=== PATIENT | female | born 1960 | race Caucasian/White ===

== ENCOUNTER → 2017-05-23 | Outpatient (CLI) | payer OTHER | LOC: CIMAGING 14:03 | PROVIDERS: ATTEND Family Medicine | DX: M17.11 Unilateral primary osteoarthritis, right knee (principal); M17.12 Unilateral primary osteoarthritis, left knee | CPT/HCPCS: 73560-PO ==

== ENCOUNTER → 2017-11-11 | Outpatient (CLI) | payer BC | LOC: FIMAGING 09:03 | PROVIDERS: ATTEND Family Medicine | DX: Z12.31 Encounter for screening mammogram for malignant neoplasm of breast (principal); Z80.3 Family history of malignant neoplasm of breast ==

== ENCOUNTER → 2018-02-08 | Outpatient (CLI) | payer BC ==
--- NOTE | 2018-02-08 21:13 | CPEKG ---
Test Reason : PREOP Blood Pressure : / mmHG Vent. Rate : 058 BPM Atrial Rate : 059 BPM P-R Int : 140 ms QRS Dur : 082 ms QT Int : 436 ms P-R-T Axes : -27 -24 -20 degrees QTc Int : 429 ms SINUS RHYTHM Confirmed by Shoaib Heard ([id number]) on 02/08/2018 9:13:10 PM Referred By: Confirmed By:Shoaib Heard
--- NOTE | 2018-02-13 15:36 | GHP ---
[f rep st] HISTORY AND PHYSICAL CURRENT COMPLAINT: Left knee pain. HISTORY OF PRESENT ILLNESS: The patient is a 57-year-old female with a several year history of left knee pain worsening with use despite multiple conservative management. Radiographic studi es reveal [id number] osteoarthritic changes. She wishes to have surgery in order to resolve the pr oblem. ALLERGIES: Include penicillins. CURRENT MEDICATIONS: Include fluoxetine and sumatriptan. PAST MEDICAL HISTORY: Prior medical problems include migraines, hepatitis, and anemia. PRIOR SURGERIES: Includes eye surgery, gallbladder. SOCIAL HISTORY: She lists no smoking nor any lists any drinking. PHYSICAL EXAMINATION: HEENT: The patient's pupils are equal, round, and reactive to light. CHEST: Clear to auscultation. HEART: Regular rate and rhythm. ABDOMEN: Soft and nontender. EXTREMITIES : Patient has a varus angle to bilateral knees. Significant gapping to valgus stress suggesting goo d end point. IMAGING: X-ray exam reveals medial osteoarthritic changes medial compartment on the left knee and to the patellofemoral compartment. ASSESSMENT: Patient is status post left knee osteoarthritis. PLAN: To take her to the operating room to undergo a left total knee replacement. /[id number]/MODL
== END ==
LOC: FPAT 09:46
PROVIDERS: ATTEND Orthopaedic Surgery
DX: Z01.810 Encounter for preprocedural cardiovascular examination (principal); Z01.812 Encounter for preprocedural laboratory examination

== ENCOUNTER 2018-02-14 08:21 | Observation (INO) | payer BC ==
[2018-02-08 10:31] LABS: PLATELET COUNT 277 10^3/uL (150-400)
[~2018-02-14 08:21] MED LIST: ACETAMINOPHEN 500 MG TAB PO ONE; BACITRACIN 50,000 UNITS/10 ML SYR IRR ONE; BUPIVACAINE/EPI 0.5% 30 ML SDV ONE; CALCIUM CHLORIDE 1 GM/10 ML INJ ONE; CLINDAMYCIN 900 MG/DEXTROSE 50 ML IV ONE; LR 1,000 ML IV SCH; POLYMYXIN B SULFATE 500,000 UNIT/10 ML SYR IRR ONE; PREGABALIN 150 MG CAP PO ONE; ROPIVACAINE 0.2% 80 MG, EPINEPHrine 0.2 MG, KETOROLAC TROMETHAMINE 30 MG, morphINE 10 M... IU ONE; THROMBIN (BOVINE) 5,000 UNIT VIAL TP ONE; TRANEXAMIC ACID 3,000 MG in NS (SYRINGE) 50 ML IRR ONE; TRANEXAMIC ACID 3,000 MG/50 ML BAG IRR ONE
[2018-02-14] MEDS ORDERED: LR 1,000 ML IV ONE (08:30)
[2018-02-14] MEDS ORDERED: LIDOCAINE 1% 2 ML INJ ID PRN (08:30)
[2018-02-14] MEDS ORDERED: CLINDAMYCIN 900 MG/DEXTROSE/50 ML BAG IV ONE (09:04)
[2018-02-14] MEDS ORDERED: PREGABALIN 150 MG CAP ONE (09:05)
[2018-02-14] MEDS ORDERED: ACETAMINOPHEN 500 MG TAB ONE (09:05)
--- NOTE | 2018-02-14 09:34 | PDHPUP ---
History & Physical Update H&P update statement: This history and physical update is based on an assessment of the patient which was completed after admission or registration (within 24 hours), but prior to the surgery/procedure. H&P update: H&P reviewed & patient examined, no change in patient's condition since H&P completed
[2018-02-14] MEDS ORDERED: MIDAZOLAM 2 MG/2 ML VIAL IVP ONE (09:52)
--- NOTE | 2018-02-14 09:54 | PDANEPAE ---
ANE Past Medical History - Cardiovascular History Hx Hypertension: No Hx Arrhythmias: No Hx Chest Pain: No Hx Coronary Artery / Peripheral Vascular Disease: No Hx CHF / Valvular Disease: No Hx Palpitations: No - Pulmonary History Hx COPD: No Hx Asthma/Reactive Airway Disease: No Hx Recent Upper Respiratory Infection: No Hx Oxygen in Use at Home: No Hx Sleep Apnea: No Sleep Apnea Screening Result - Last Documented: Negative Pulmonary History Comment: PNEUMONIA 2007 - Neurologic History Hx Cerebrovascular Accident: No Hx Seizures: No Hx Dementia: No - Endocrine History Hx Diabetes: No - Renal History Hx Renal Disorders: No - Liver History Hx Hepatic Disorders: No - Neurological & Psychiatric Hx Hx Neurological and Psychiatric Disorders: Yes Neurological / Psychiatric History Comment: DEPRESSION. TWICE A MONTH MIGRAINES - Cancer History Hx Cancer: No - Congenital Disorder History Hx Congenital Disorders: No - GI History Hx Gastrointestinal Disorders: Yes Gastrointestinal History Comment: GERD - Other Health History Other Health History: ANEMIA. MISSING UPPER BACK LT TOOTH. OSTEOARTHRITIS. EASY BRUISING - Chronic Pain History Chronic Pain: Yes (LT KNEE) - Surgical History Prior Surgeries: LAP PADMAJA. LT STRABISMUS ANE Review of Systems Review of Systems: - Exercise capacity METS (RN): 3 METS ANE Patient History - Allergies Allergies/Adverse Reactions: Penicillins Allergy (Intermediate, Verified 02/07/18 19:00) Hives - Home Medications Home medications: home medication list seen and reviewed Home Medications: FLUoxetine HS 02/07/18 [Last Taken 02/13/18] Herbals/Supplements -Info Only DAILY 02/07/18 [Last Taken 02/13/18] Iron DAILY 02/07/18 [Last Taken 02/13/18] Ranitidine HCl HS 02/07/18 [Last Taken 02/13/18] SUMAtriptan PRN 02/07/18 [Last Taken 2 Weeks Ago ~01/31/18] - NPO status NPO Since - Liquids (Date): 02/14/18 NPO Since - Liquids (Time): 06:00 NPO Since - Solids (Date): 02/13/18 NPO Since - Solids (Time): 22:00 - Anes Hx Anes Hx: no prior problems - Smoking Hx Smoking Status: Current some day smoker - Alcohol Use Alcohol Use: Rarely - Family Anes Hx Family Anes Hx: none ANE Labs/Vital Signs - Labs Result Diagrams: 02/08/18 10:18 - Vital Signs Blood Pressure: 148/97 Heart Rate: 69 Respiratory Rate: 16 O2 Sat (%): 97 Height: 157.48 cm Weight: 81.647 kg ANE Physical Exam - Airway Neck exam: FROM Mallampati Score: Class 2 - Pulmonary Pulmonary: no respiratory distress, no rales or rhonchi, clear to auscultation - Cardiovascular Cardiovascular: regular rate and rhythym, no murmur, rub, or gallop - ASA Status ASA Status: II ANE Anesthesia Plan Anesthesia Plan: spinal Regional Anesthesia: adductor canal FNB
[2018-02-14] MEDS ORDERED: MIDAZOLAM 2 MG/2 ML VIAL ONE (09:56)
[2018-02-14] MEDS ORDERED: PROPOFOL/EMULSION 500 MG/50 ML BOTTLE IV ONE ×2 (10:00→11:17)
[2018-02-14] MEDS ORDERED: BUPIVACAINE 0.75% 10 ML SDV ONE (10:06)
[2018-02-14] MEDS ORDERED: fentaNYL 100 MCG/2 ML INJ ONE (10:08)
[2018-02-14] MEDS ORDERED: BUPIVACAINE 0.25% 30 ML SDV ONE (10:36)
[2018-02-14] MEDS ORDERED: ONDANSETRON 4 MG/2 ML VIAL ONE (10:54)
[2018-02-14] MEDS ORDERED: DEXAMETHASONE 4 MG/ML VIAL ONE ×2 (10:54)
[2018-02-14] MEDS ORDERED: NALOXONE HCL 0.4 MG/ML INJ IVP PRN (11:10)
[2018-02-14] MEDS ORDERED: THROMBIN (BOVINE) 5,000 UNIT VIAL TP ONE (11:17)
[2018-02-14] MEDS ORDERED: EPINEPHrine 1 MG/ML INJ ONE (11:17)
[2018-02-14] MEDS ORDERED: oxyCODONE IR 5 MG TAB PO PRN (11:52)
[2018-02-14] MEDS ORDERED: ACETAMINOPHEN 500 MG TAB PO PRN (11:52)
[2018-02-14] MEDS ORDERED: ONDANSETRON 4 MG/2 ML VIAL IVP PRN ×2 (11:52→12:10)
[2018-02-14] MEDS ORDERED: PROMETHAZINE HCL 25 MG/ML INJ IVP PRN ×2 (11:52→12:10)
[2018-02-14] MEDS ORDERED: LR 500 ML IV PRN (11:52)
[2018-02-14] MEDS ORDERED: fentaNYL 100 MCG/2 ML INJ IVP PRN (11:52)
[2018-02-14] MEDS ORDERED: PROMETHAZINE HCL 25 MG SUPPR PR PRN (12:10)
[2018-02-14] MEDS ORDERED: LACTULOSE 20 GM/30 ML UDCUP PO PRN (12:10)
[2018-02-14] MEDS ORDERED: DIPHENOXYLATE/ATROPINE LOMOTIL 1 TAB PO PRN (12:10)
[2018-02-14] MEDS ORDERED: diphenhydrAMINE 25 MG CAP PO PRN (12:10)
[2018-02-14] MEDS ORDERED: MAGNESIUM HYDROXIDE 30 ML UDCUP PO PRN (12:10)
[2018-02-14] MEDS ORDERED: POLYETHYLENE GLYCOL 3350 17 GM PKT PO PRN (12:10)
[2018-02-14] MEDS ORDERED: TEMAZEPAM 15 MG CAP PO PRN (12:10)
[2018-02-14] MEDS ORDERED: TAPENTADOL HCL 50 MG TAB PO PRN (12:10)
[2018-02-14] MEDS ORDERED: BISACODYL 10 MG SUPP PR PRN (12:10)
[2018-02-14] MEDS ORDERED: METOCLOPRAMIDE 10 MG/2 ML VIAL IVP PRN (12:10)
[2018-02-14] MEDS ORDERED: ONDANSETRON DISINTEGRATING 4 MG TAB PO PRN (12:10)
--- NOTE | 2018-02-14 12:10 | POSTOPPROG ---
Post Op Note Date of Operation: 02/14/18 Surgeon: Tejal Ibrahim Record Keeper: coltrain Anesthesia: Epidural, IV Sedation Pre-op Diagnosis: l knee oa Procedure: l tkr Inf/Abcess present in the surg proc area at time of surgery?: No Depth: Deep Incisional (Fascial) EBL: 100-500
[2018-02-14] MEDS ORDERED: LR 1,000 ML IV SCH (12:30)
--- NOTE | 2018-02-14 12:42 | POSTANESTH ---
Post Anesthetic Evaluation Cardiovascular Status: Normal, Stable, Similar to Pre-Op Cond Respiratory Status: Normal, Stable, Similar to Pre-op Cond. Level of Consciousness/Mental Status: Can Participate in Eval, Mildly Sleepy, Arousable Pain Control: Adequate, Prn Tx Ordered Nausea/Vomiting Control: Adequate, Prn Tx Ordered Complications Possibly Related to Anesthesia: None Noted (L Adductor Canal nerve block performed in PACU.)
--- NOTE | 2018-02-14 13:01 | GOP ---
[f rep st] OPERATIVE REPORT DATE OF OPERATION: 02/14/2018 SURGEON: Tejal Ibrahim MD ANESTHESIA: By epidural plus IV sedation. PREOPERATIVE DIAGNOSIS: Left knee osteoarthritis. POSTOPERATIVE DIAGNOSIS: Left knee osteoarthritis. PROCEDURE PERFORMED: FINDINGS: DESCRIPTION OF PROCEDURE: Patient brought to the operating room after the left side had been identif ied as correct side by the patient, nurse and physician. Once in the operating room, she was given t he epidural nerve block and was placed under IV sedation. She was placed supine on the operating tab le. The left lower extremity had a tourniquet placed around the upper portion of left thigh, and the left lower extremity then sterilely prepped and draped in usual fashion using GSI solution. Once pr epped and draped, the limb was exsanguinated, tourniquet inflated to 250 mmHg. A linear incision was made on the anterior portion of the knee 1 handbreadth above and below the patella, with sharp disse ction carried down through the skin and subcutaneous layers, with bleeding controlled using electroca utery. A medial parapatellar incision was made through the extensor mechanism, with the patella brou ght to the side but not everted. Inspection of the joint revealed grade 4 chondral changes of the me dial compartment, grade 3 chondral changes at the patellofemoral compartment and grade 2 to the later al. Therefore, the ACL, as well as the medial and lateral meniscus were removed. Drill hole was mad e 1 cm anterior to the intercondylar notch with an intramedullary guide introduced into the femur and the end-cutting guide set at 5 degrees of valgus and set to remove 10 mm of bone. Once pinned into place, the intramedullary guide was removed. Oscillating saw was used to remove the distal end of th e femur. Once it was removed, osteotome was used to remove the cartilage off the posterior condyles of the femur. A sizing guide was placed on the cut surface of the femur noted a size 5 seemed to fit best. Therefore, drill holes were made and a size five 4 in 1 cutting block was put into place. On ce pinned into place, position was checked with an Som wing and then an oscillating saw was used to cut the anterior and posterior cuts as well as the anterior posterior chamfer cuts. Once all the [place] fragments had been removed, a size 5 trial was put into place and noted to fit securely. The [facility] hlear cuts were then made and lug holes were drilled for the femoral component. The leg was extended all the way and noted to achieve full extension, suggesting an adequate amount of bone had been odell edy. The femoral trial was removed. The knee was brought to maximal flexion, tibia subluxed anterio rly. An external tibial guide was put into place, set in neutral varus valgus and slight posterior s luisana. Once pinned into place, position was checked using a drop gavin, as well as an Som wing. Osci llating saw was then used to remove the proximal portion of the tibia until achieving flat cut. Tria l femur, tibia, and liner was put in place. The knee was stable to achieve full extension, suggestin g an adequate amount had been removed. Therefore, pins removed from the tibia. The knee was brought back to full flexion with the tibia subluxed anteriorly. Sizing guides were placed on the cut surfa ce of the tibia and noted a size 4 seemed to fit best. Therefore, a size 4 trial was put into place, pinned in slight external rotation. Drill holes made through the tibial guide to accommodate the ke el and then a keel punch passed through the tibia. All trials were then removed from the tibia inclu ding the pins. The leg was brought to full extension. Patella was then everted, held in place with towel clamps. The tibia was measured to be 21 mm in size. Oscillating saw was used to remove the po sterior portion of the patella, leaving 14 mm of bone. Multiple sizes were trialed on the cut surfac e. Noted that a 29 mm patella button seemed to fit best and lug holes were drilled for a 29 mm crawford lar button. All cut surfaces of the bone were then thoroughly irrigated with antibiotic solution usi ng pulsatile lavage while cement was being mixed. Once cement was doughy, it was placed on the cut s urface of the tibia with a size 4 right medical tibial component put into place with excess cement re moved using [place] elevators. Cement was then placed on the posterior skids of the femoral component. A size 5 cruciate retaining right medical femoral component was put into place with excess cement r emoved using [place] elevator. A trial liner was placed in the tibial tray. The knee was brought to f ull extension in order to pressurize cement. Cement was then placed on the cut surface of the patell a and a 29 mm patellar button was clamped into place with excess cement removed using [place] elevator. Once cement had hardened, any excess cement that was found was removed using combination of rongeur and osteotome. Multiple trials were placed in the tibial tray and noted that a 12 mm polyethylene l iner seemed to fit best. Therefore, a size 4 x 12 mm polyethylene liner was put into place and noted to fit securely. Tourniquet was deflated at 60 minutes. Bleeding was controlled using electrocaute ry. The joint cocktail was injected in the posterior capsule and periosteum of the femur, the tibia and extensor mechanism. Tranexamic acid was irrigated through the wound. The wound was then closed in layers to include 0 Vicryl suture in a [id number] type stitch for the extensor mechanism, wit h plasma gel placed intra-articularly. 0 Vicryl and 2-0 Vicryl suture used for the subcutaneous laye rs and a 3-0 V-Loc suture in a running subcuticular stitch for the skin. The wound was then dressed with Steri-Strips, Xeroform, 4 x 4, and Kerlix. Leg was completely undraped in the operating room, t ourniquet removed from the thigh and an Chris wrap placed around the knee. The patient was then comple tely undraped in the operating room. She was transferred onto a stretcher and sent to recovery room in good condition. PROCEDURE PERFORMED: Left total knee arthroplasty. ASSITANT: Pablito Lopez, ROMINA, LSA, whose presence was medically necessary. TOURNIQUET TIME: 60 minutes. INDICATION FOR SURGERY: This is a 57-year-old female with a several year history of left knee pain w orsening with use and with time. X-ray exam reveals [id number] osteoarthritic changes. She wishes to have surgery in order to resolve the problem. /[id number]/MODL
[2018-02-14] MEDS: KETOROLAC 15 MG/1 ML SDV IVP SCH (17:49)
[2018-02-14] MEDS: traMADol 50 MG TAB PO SCH (17:52)
[2018-02-14] MEDS ORDERED: VANCOMYCIN 1.25 GM in D5W 250 ML IV ONE (18:00)
[2018-02-14] MEDS: FAMOTIDINE 20 MG TAB PO SCH (20:14)
[2018-02-14] MEDS: CYCLOBENZAPRINE 10 MG TAB PO PRN (20:14)
[2018-02-14] MEDS: SENNOSIDES/DOCUSATE SODIUM TAB PO SCH (20:14)
[2018-02-15] MEDS: traMADol 50 MG TAB PO SCH ×3 (00:08→13:03)
[2018-02-15] MEDS: KETOROLAC 15 MG/1 ML SDV IVP SCH ×4 (00:08→13:03)
[2018-02-15] MEDS ORDERED: PNEUMOCOCCAL 0.5ML VACCINE VIAL IM ONE (05:29)
[2018-02-15] MEDS ORDERED: RIVAROXABAN 10 MG TAB PO SCH (09:00)
[2018-02-15] MEDS: CYCLOBENZAPRINE 10 MG TAB PO PRN (10:01)
[2018-02-15] MEDS: FAMOTIDINE 20 MG TAB PO SCH (10:02)
[2018-02-15] MEDS: SENNOSIDES/DOCUSATE SODIUM TAB PO SCH (10:02)
[2018-02-15 11:43] VITALS: BP 120/83
--- NOTE | 2018-02-15 14:05 | PDIAF ---
- Diagnosis Diagnosis: left knee osteoarthritis Code Status: Full Code - Medication Management Discharge Medications: Medications to Continue on Transfer Cholecalciferol Vit D3 [Vitamin D3 (*)] 1,000 units PO DAILY 02/14/18 [Last Taken Unknown] FLUoxetine HCL [Fluoxetine HCl] 40 mg PO HS 02/14/18 [Last Taken 02/13/18] Herbals/Supplements -Info Only 1 ea PO DAILY 02/14/18 [Last Taken Unknown] Ranitidine HCl [Zantac] 150 mg PO HS PRN 02/14/18 [Last Taken 02/13/18] Sumatriptan Succinate [Imitrex] 100 mg PO Q2H PRN 02/14/18 [Last Taken Unknown] Rivaroxaban [Xarelto 10mg (*)] 10 mg PO DAILY 10 Days tab 02/15/18 [Last Taken Unknown] Tapentadol HCl [Nucynta 50 MG (*)] 50 mg PO Q4HRS PRN #30 tab 02/15/18 [Last Taken Unknown] traMADol [Ultram 50 mg (*)] 50 mg PO Q6HRS #30 tab 02/15/18 [Last Taken Unknown] Discharge Medications: Refer to the Discharge Home Medication list for PRN reason. - Orders Services needed: Physical Therapy, Occupational Therapy Diet Recommendation: no restrictions on diet Diet Texture: Regular Texture Diet Additional Instructions: WBAT LLE. Keep dressing clean and dry. Xarelto [id number] post op. Pain medication in chart. Follow up in 7-10 days for repeat evaluation - Follow Up Care Current Providers and Referrals: Fela Connelly MD [Primary Care Provider] - Tejal Ibrahim MD [Medical Doctor] -
--- NOTE | 2018-02-15 16:06 | ASMTCMCOM ---
CM Note CM Note Notes: Met with patient to discuss dispo plan. Patient would like HC but does not have a choice as she has never received HHC in the past. Patient lives in [place], referral sent to [facility] as they likely serve that area. Spoke with admissions at [facility], patient currently has a $120 copay until meets deductible. Patient is comfortable with this as she is certain her deductible will be met with this surgery. All orders sent to [facility] via [employer]. Address/phone # confirmed with patient. Family to transport home today. Plan: [facility] PT/OT Date Signed: 02/15/2018 04:06 PM Electronically Signed By:Michelle Dumont RN
--- NOTE | 2018-02-15 16:07 | ASMTLACE ---
JONATHAN Length of stay for Answers: 1 day current admission Acuity / Level of Answers: No Care: Did the patient have an inpatient admission? Comorbidities - select Answers: Opioid dependence all that apply / Chronic pain Other Notes: GERD # of Emergency department Answers: 0 visits in the last 6 months Social determinants Answers: Mental health diagnosis (anxiety, depression, pers onality disorders, etc.) Score: 9 Date Signed: 02/15/2018 04:07 PM Electronically Signed By:Michelle Dumont RN
--- NOTE | 2018-02-15 18:07 | ASDISCHSUM ---
Discharge Information Plan Status:Home with Home Health Medically Cleared to Leave: Discharge Date:02/15/2018 04:46 PM D/C Disposition:Home Health Service ADT D/C Disposition:Home, Routine, Self-Care Projected Discharge Date:02/15/2018 11:00 AM Transportation at D/C:Family Discharge Delay Reason: Follow-Up Date:02/15/2018 11:00 AM Discharge Slot: Final Diagnosis: Placement Information Referral Type:*Home Health Care Services Referral ID:[id number] Provider Name:[facility] [place] Address 1:[address] Address 2: City:[place] Selection Factors: State:[place] Patient Contact Information Contact Name:JAMES Relationship: Address:[address] City:[place] Alternate Phone: State/Zip Code:[place] [address] Email: Financial Information Financial Class:BCOP Primary Plan Desc:BC OUT OF STATE [facility] Primary Plan Number:[id number] Secondary Plan Desc: Secondary Plan Number: Assessment Information LACE LACE Length of stay for Answers: 1 day current admission Acuity / Level of Answers: No Care: Did the patient have an inpatient admission? Comorbidities - select Answers: Opioid dependence all that apply / Chronic pain Other Notes: GERD # of Emergency department Answers: 0 visits in the last 6 months Social determinants Answers: Mental health diagnosis (anxiety, depression, pers onality disorders, etc.) Score: 9 Date Signed: 02/15/2018 04:07 PM Electronically Signed By:Michelle Dumont RN [facility] CM Progress Note CM Note CM Note Notes: Met with patient to discuss dispo plan. Patient would like but does not have a choice as she has never received [facility] in the past. Patient lives in [place], referral sent to [facility] as they likely serve that area. Spoke with admissions at [facility], patient currently has a $120 copay until meets deductible. Patient is comfortable with this as she is certain her deductible will be met with this surgery. All orders sent to [facility] via [employer]. Address/phone # confirmed with patient. Family to transport home today. Plan: [facility] PT/OT Date Signed: 02/15/2018 04:06 PM Electronically Signed By:Michelle Dumont RN Intervention Information
== END 2018-02-15 16:46 | disposition home health service (06) ==
LOC: F3N 08:21
PROVIDERS: ADMIT Orthopaedic Surgery; ATTEND Orthopaedic Surgery
PROC: 0SRD0J9 Replacement of Left Knee Joint with Synthetic Substitute, Cemented, Open Approach (ICD-10-PCS; principal; 2018-02-14 09:45)
DX: M17.12 Unilateral primary osteoarthritis, left knee (principal)
CPT/HCPCS: 27447; 73560; 97116; 97161; 97165; G0378; C1713; J0171; J1100; J1885; J2250; J2270; J2405; J2704; J2795; J3010; J3370